=== PATIENT | female | born 1935 | race Caucasian/White ===

== ENCOUNTER 2019-12-16 21:31 | Inpatient (IN) | payer MEDICARE, MEDICAID ==
[~2019-12-16] VITALS: Ht 157.4 cm; Wt 86.3 kg
[2019-12-16] MEDS ORDERED: TRESIBA100 UNIT/1 SQ (23:01)
[2019-12-16] MEDS ORDERED: TRELEGY ELLIPT1 EACH INH (23:04)
[2019-12-16] MEDS ORDERED: DIPROSONE 0.05%15 GM T (23:05)
[2019-12-16] MEDS ORDERED: CLARITIN10 MG PO (23:07)
[2019-12-16] MEDS ORDERED: ENBREL50 MG/1 M2 SQ (23:08)
[2019-12-16] MEDS ORDERED: PRILOSEC20 M1 PO (23:09)
[2019-12-16] MEDS ORDERED: COLACE CLEAR50 MG PO (23:11)
[2019-12-16] MEDS ORDERED: AZELASTINE137 MCG/0. NAS (23:13)
[2019-12-16] MEDS ORDERED: VENTOLIN 02.5 MG/3 M INH (23:14)
[2019-12-16 23:15] VITALS: BP 156/82
--- NOTE | 2019-12-16 23:15 | NUR ---
A 84, admitted VOLUNTARY to , under the services of CINDI Loredo MD with a diagnosis of BRIEF PSYCHOTIC DISORDER. Chief complaint is AUDITORY AND VISUAL HALLUCINATIONS. Patient arrived via stretcher from [facility]. Initial assessment completed. Vital signs taken and recorded. CINDI LOREDO MD notified of admission to the unit. Orders received. See assessment for past medical history, medications and allergies. Patient oriented to unit. [facility]. visitation policy reviewed. Clothing/patient valuable form completed. GUILLERMO PLUMMER
[2019-12-16] MEDS ORDERED: TYLENOL EXTRA500 MG PO (23:17)
[2019-12-17 00:11] VITALS: BP 156/82
[2019-12-17] MEDS ORDERED: SIMVASTATIN80 MG PO (00:27)
[2019-12-17] MEDS ORDERED: LASIX40 MG PO (00:27)
[2019-12-17] MEDS ORDERED: PLAVIX75 M1 PO (00:28)
[2019-12-17] MEDS ORDERED: OMEGA 3 1,0001 EACH PO (00:30)
[2019-12-17] MEDS ORDERED: FEROSUL325 MG PO (00:31)
[2019-12-17] MEDS ORDERED: SINGULAIR10 M1 PO (00:32)
[2019-12-17] MEDS ORDERED: METOPROLOL SUC100 M1 PO (00:33)
[2019-12-17] MEDS ORDERED: DIALYVITE 800800 MCG PO (00:35)
[2019-12-17] MEDS ORDERED: ASPIR 8181 MG PO (00:37)
[2019-12-17] MEDS ORDERED: NITROSTAT0.4 MG SL (00:40)
[2019-12-17] MEDS ORDERED: VITAMIN D250 MCG PO (00:42)
[2019-12-17] MEDS ORDERED: RANEXA1000 M1 PO (00:43)
[2019-12-17] MEDS ORDERED: IMDUR SA60 M1 PO (00:44)
[2019-12-17] MEDS ORDERED: OYSTER SHELL C1 EAC3 PO (00:55)
--- NOTE | 2019-12-17 00:59 | NUR ---
DR CARPENTER NOTIFIED OF MEDICAL CONSULT & MED REQ READY FOR REVIEW. CONSULT TO BE PLACED UNDER DR ROYAL.
--- NOTE | 2019-12-17 01:30 | NUR ---
DR CARPENTER ON UNIT TO SEE PT FOR MEDICAL CONSULT. UPDATED ON MED HISTORY & NEED FOR WOUND ORDERS.
[2019-12-17] MEDS ORDERED: LASIX20 MG PO (03:03)
--- NOTE | 2019-12-17 03:15 | NUR ---
PATIENT ALERT AND ORIENTED X4, CALM AND COOPERATIVE WITH ADMISSION ASSESSMENT WITHOUT DIFFICULTY. PT STATED SHE RECENTLY STARTED HAVING HALLUCINATIONS OF EITHER SHADOWS OR OBJECTS MOVING AROUND HER HOUSE. PT ALSO STATED SHE AT TIMES HEARS VOICES OF UNKNOWN PEOPLE. BECAUSE OF THIS PATIENT CALLED FOR SOMEONE TO COME OVER HER HOUSE TO SEE IF ANYONE ELSE WAS THERE AND THAT IS HOW SHE ENDED UP AT THE HOSPITAL. PT DENIES HALLUCINATIONS AT THIS TIME. PT ALSO DENIES SI/HI OR PAIN. NO PARANOIA OR DELUSIONS OBSERVED. PT NOTED TO HAVE A MOIST NON-PRODUCTIVE COUGH WITH RHONCHI NOTED UPON AUSCULTATION. PT STATED THAT IT IS A SYMPTOM OF HER COPD THAT SHE HAS HAD FOR A WHILE, UPDATED. SKIN ASSESSMENT ALSO COMPLETED WITH WOUND CARE NURSE, MARVIN. SEE WOUND CARE SCREEN. PT USES WALKER TO AMBULATE, GAIT UNSTEADY. FALL PRECAUTIONS INITIATED AND CONTINUED. PT INCONTINENT/CONTINENT OF BOWEL AND BLADDER, X1 ASSIST WITH ADLS. PT CURRENTLY LAYING DOWN WITH EYES CLOSED, RESPIRATIONS EASY AND REGULAR ON 2L NC. NO DISTRESS NOTED. PLAN IS TO CONTINUE TO MONITOR MOOD AND BEHAVIORS. PRESENT REALITY NEEDED. PROVIDE 1:1 WITH THERAPEUTIC INTERVENTIONS. ENCOURAGE MEDICATION COMPLIANCE AND EDUCATE. MAINTAIN Q 15 MIN CHECKS AND PRN FOR SAFETY.
--- NOTE | 2019-12-17 05:15 | NUR ---
UPDATED ON WOUND CARE RECOMMENDATIONS BEING IN FOR REVIEW. NO NEW ORDERS RECEIVED AT THIS TIME.
--- NOTE | 2019-12-17 05:57 | NUR ---
PATIENT SLEPT APPROX 3 HOURS INTERRUPTED SINCE ADMISSION, NO DISTRESS NOTED.
[2019-12-17 06:38] LABS: BASO % 0.4 % (0.0-1.0); EOS # 0.1 10*3/uL (0.0-0.4); EOS % 1.7 % (1.0-4.0); HEMATOCRIT 29.1 % (37.0-47.0); LYMPH # 1.5 10*3/uL (1.3-4.4); LYMPH % 28.8 % (27.0-41.0); MEAN CELL VOLUME 93.9 fl (81.0-99.0); MEAN CORPUSCULAR HGB CONC 30.9 g/dl (33.0-37.0); MEAN PLATELET VOLUME 8.4 fl (9.6-12.3); MONO # 0.8 10*3/uL (0.1-1.0); MONO % 14.6 % (3.0-9.0); NEUT # 2.9 10*3/uL (2.3-7.9); NEUT % 54.1 % (47.0-73.0); PLATELET COUNT AUTOMATED 226 10*3/uL (130-400); RED CELL DISTRI WIDTH 15.5 % (0-14.5); WHITE BLOOD COUNT 5.4 10*3/uL (4.8-10.8)
[2019-12-17 07:19] LABS: THYROID STIM HORMONE (HS) 1.67 uIU/ml (0.358-4.75)
[2019-12-17 07:35] VITALS: BP 177/73
[2019-12-17 07:47] LABS: VITAMIN D, 25-HYDROXY 67.4 ng/mL (30-100)
--- NOTE | 2019-12-17 07:49 | NUR ---
PHYSICAL THERAPY Screen received, pt admitted from [facility] after coming there from home due to auditory and visual hallucinations. Please consult PT if pts functional status declines from baseline. Thank you. Huan Bustos SPT Kelsey Benítez PT
--- NOTE | 2019-12-17 08:03 | NUR ---
Nursing screen received and chart reviewed. 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 If patient has a decline in ADLs, transfers, or functional mobility, please send OT orders. Thank you. Flavia Joseph, OTR/L
--- NOTE | 2019-12-17 08:30 | NUR ---
Treatment Plan meeting was held this a.m. with MICHELLE Felder RN, LOTUS NOTES ADMINISTRATOR-S and Facility Mechanic. Plan for discharge at the end of the week. Pt. came to [facility] from home and at this time Plan is for Pt. to return home.
[2019-12-17 09:42] LABS: ABG BASE EXCESS 4.1 mmol/L (-2.0-2.0); ARTERIAL BLOOD GAS PH 7.412 (7.35-7.45)
--- NOTE | 2019-12-17 10:12 | NUR ---
SPOKE WITH DR THOMPSON RE: PT ABG RESULTS, PER DR THOMPSON SHE WILL TAKE A LOOK. NO FURTHER ORDERS AT THIS TIME.
--- NOTE | 2019-12-17 10:40 | NUR ---
DR SANTIAGO AND TEAM ON UNIT TO ASSESS PT, UPDATE PROVIDED.
--- NOTE | 2019-12-17 11:42 | NUR ---
Group therapy this AM with discussion centering around happiness. Pt fully participated offering her thoughts and voicing encouragement toward another patient. Handout was provided entitled "What Happy People Know." Pt was appropriate in conversation and did not voice any hallucinations during group time.
--- NOTE | 2019-12-17 12:56 | NUR ---
SPOKE WITH DR THOMPSON, ADVISED THAT AFTER SPEAKING WITH PT, SHE TOLD THIS NURSE THAT SHE HAS NOT BEEN WEARING HER O2 AT NIGHT AT HOME AND HAS NOT BEEN SINCE JULY WHEN SHE MOVED APARTMENTS. THIS NURSE PROVIDED EDUCATION FOR PT ON IMPORTANCE OF WEARING HER O2 AT NIGHT AND THE LACK OF O2 MAY ALSO BE CONTRIBUTING TO HER HALLUCIANTIONS. PER DR THOMPSON CHECK PT SPO2 A COUPLE OF TIMES THROUGHOUT THE NIGHTTIME WHEN SHE IS WEARING THE O2 AND SHE WILL CONTINUE TO MONITOR PT. NO FURTHER ORDERS AT THIS TIME.
--- NOTE | 2019-12-17 13:23 | NUR ---
NO ADVERSE MOODS OR BEHAVIORS NOTED. PT ALERT TO PERSON, PLACE AND TIME. PT MED COMPLIANT WITHOUT DIFFICULTY, MED EDUCATION PROVIDED. PT CALM, MOOD IS STABLE. PT PLEASANT, COOPERATIVE AND INTERACTIVE WITH STAFF AND PEERS. PT MOOD IS STABLE. PT DENIES ANY HALLUCINATIONS OR DELUSIONS, NO OVERT S/S NOTED AT THIS TIME. PT DENIES ANY SUICIDAL THOUGHTS. PT AMBULATORY THROUGHOUT UNIT, GAIT STEADY. PT CONTINENT OF BOWEL AND BLADDER, EPISODES OF INCONTINENCE NOTED, CARE PROVIDED NEEDED. PLAN IS TO MONITOR PT BEHAVIORS ON Q15 MIN SAFETY CHECKS, ENOCOURAGE MED COMPLIANCE AND PROVIDE MED EDUCATION, PROVIDE EMOTIONAL SUPPORT AND 1:1 FOR PT TO VOICE FEELINGS.
--- NOTE | 2019-12-17 17:03 | NUR ---
ATTEMPTED TO CALL DR THOMPSON WITH XRAY RESULTS, NO ANSWER AT THIS TIME, WILL ATTEMPT AT A LATER TIME.
--- NOTE | 2019-12-17 18:31 | NUR ---
SPOKE WITH DR THOMPSON AT [phone] RE: PT CXR RESULTS AND PT BEING SOB AT THIS TIME. SPO2 95%RA. PER DR THOMPSON SHE WILL LOOK AT THE RESULTS AND LOOK AT THE ORDERS FOR BREATHING TREATMENT. NO FURTHER ORDERS AT THIS TIME.
[2019-12-17 20:00] VITALS: BP 114/67
--- NOTE | 2019-12-17 22:32 | NUR ---
P-PREOCCUPIED I-PROVIDED REDIRECTION WITH 1:1 THERAPEUTIC COMMUNICATION AND INTERVENTIONS. PRESENTED REALITY NEEDED. ENCOURAGED AND EDUCATED PATIENT ABOUT MEDICATION AND COMPLIANCE R-PATIENT MEDICATION COMPLIANT AT HS. PATIENT PROVIDED SNACK AND FLUIDS AT HS. PATIENT COMPLIANT WITH O2 AT 2L VIA NASAL CANNULA AT HS. PATIENT AMBULATING HALLWAY WITH WHEELED WALKER AND STEADY GAIT. PATIENT COMPLAINT OF FEELING SHAKY AND REQUESTED THIS NURSE TO CHECK HER BLOOD SUGAR. BLOOD SUGAR RESULTS OF 224 AFTER HS SNACK. PATIENT STATING "IT MUST BE ALL IN MY HEAD THEN" AFTER RECEIVING BLOOD SUGAR RESULTS.PATIENT REQUESTING REVIEW OF MEDICATIONS AT HS. THIS NURSE PROVIDED MEDICATION EDUCATION. PATIENT INTERACTING WITH PEERS IN DINING AREA. PATIENT WITH NO HALLUCINATIONS OR DELUSIONS. PATIENT WITH NO SUICIDAL OR HOMICIDAL IDEATIONS. P-CONTINUE TO ENCOURAGE MEDICATION COMPLIANCE, CONTINUE TO PRESENT REALITY, ENCOURAGE GROUP THERAPY WHILE AWAKE
--- NOTE | 2019-12-18 06:00 | NUR ---
PATIENT SLEPT 6 HOURS OF INTERRUPTED SLEEP THROUGHOUT SHIFT. Q 15 MINUTE CHECKS MAINTAINED. 24 HR chart check completed.
[2019-12-18 06:57] LABS: ALBUMIN 2.3 gm/dl (3.1-4.5); CREATININE 1.52 mg/dL (0.55-1.02); POTASSIUM 4.1 mmol/L (3.5-5.1); TOTAL PROTEIN 6.8 gm/dL (6.4-8.2)
[2019-12-18 07:51] VITALS: BP 140/40
--- NOTE | 2019-12-18 09:00 | NUR ---
Treatment Plan meeting was held this a.m. with MICHELLE Felder RN, POLEYARD SUPERVISOR-S and Racecourse Barrier Attendant. Plan for discharge Monday. Pt. will return home at discharge.
--- NOTE | 2019-12-18 11:13 | NUR ---
Spoke with pt's Passport caser in Karen Crandall ([phone]) and provided her with pt update. Karen is requesting a call when discharge date is determined for pt so that she can resume pt's home services.
--- NOTE | 2019-12-18 11:26 | NUR ---
PAMELA POWERS ON UNIT TO ASSESS PATIENT.
--- NOTE | 2019-12-18 12:00 | NUR ---
Shift chart check completed.
--- NOTE | 2019-12-18 12:07 | NUR ---
Nutritional Support Services Note: Appetite is fair to good for meals. Dx of DM, brief psychotic disorder. Wounds noted Stage 3. She currently receives an 1800cal diet. Recommend glucerna OS po TID with meals. Will continue to provide pt with a night snack. Staff to encourage intake and honor food prefences. Will follow if needed. Xenia Powers Rdn Ld
--- NOTE | 2019-12-18 12:55 | NUR ---
No adverse moods or behaviors noted this shift. Alert and oriented x4, mood stable, affect is congruent with mood. Denies SI/HI, intent or plan, hallucinations, delusions or pain. No s/s of interacting with internal stimuli. No s/s of paranoid or delusional thought process noted. No s/s of distress noted with resps even and unlabored on room air. Voices needs and makes known. Medication compliant with education provided on each med. Interactive and participating. Eating and drinking appropriately. Ambulates with a steady gait utilizing a walker. Compliant with falling star program and wound care orders. Fallin star program in place due to unsteady gait at times. Wound care orders maintained and encouraged patient compliance with education. Q15 minute checks maintained for safety.
--- NOTE | 2019-12-18 13:31 | NUR ---
Group therapy this afternoon with the topic of thankfulness. Pt participated and offered her thoughts. Pt was supportive of another pt in group. Hand-out provided "Thank you: The Power of Appreciation." Pt was also provided with a gratitude journal and educated in the benefits of daily use. This freelance writer did not observe pt voicing any hallucinations or delusions.
--- NOTE | 2019-12-18 18:00 | NUR ---
Shift chart check completed.
--- NOTE | 2019-12-18 18:01 | NUR ---
PATIENT IS ALERT TO PERSON, PLACE, TIME AND SITUATION; ABLE TO VOICE NEEDS. MOOD IS STABLE. DENIES HALLUCINATIONS, DELUSIONS, HI/SI OR PAIN. MEDICATION COMPLAINT WITH EDUCATIONS. Q 15 MINUTE SAFETY CHECKS. ONE PERSON ASSIST WITH ACTIVITIES OF DAILY LIVING, CONTINENT OF BOWEL AND BLADDER. SET UP FOR MEALS, INTAKES ARE GOOD WITH ADEQUATE FLUIDS. AMBULATES WITH STEADY GAIT USING A WALKER. INTERACTIVE WITH NURSES AND OTHER PATIENTS. CONTINUE TO MONITOR FOR HALLUCINATIONS; PROVIDE ONE ON ONE AND REDIRECTION NEEDED.
[2019-12-18 20:00] VITALS: BP 111/75
--- NOTE | 2019-12-18 22:14 | NUR ---
P-PREOCCUPIED I-PROVIDED REDIRECTION WITH 1:1 THERAPEUTIC COMMUNICATION AND INTERVENTIONS. PRESENTED REALITY NEEDED. ENCOURAGED AND EDUCATED PATIENT ABOUT MEDICATION AND COMPLIANCE R-PATIENT MEDICATION COMPLIANT AT HS. PATIENT PROVIDED SNACK AND FLUIDS AT HS. PATIENT COMPLIANT WITH O2 AT 2L VIA NASAL CANNULA AT HS. PATIENT AMBULATING IN HALLWAY WITH WHEELED WALKER AND STEADY GAIT. PATIENT REQUESTING REVIEW OF MEDICATIONS AT HS. THIS NURSE PROVIDED MEDICATION EDUCATION. PATIENT ALSO WANTING CLARIFICATION OF GLUCERNA AT HS AND TIMES OF DAY WHEN GLUCERNA IS TO BE RECEIVED. PATIENT INTERACTING WITH PEERS IN DINING AREA. PATIENT WITH NO HALLUCINATIONS OR DELUSIONS. PATIENT WITH NO SUICIDAL OR HOMICIDAL IDEATIONS. P-CONTINUE TO ENCOURAGE MEDICATION COMPLIANCE, CONTINUE TO PRESENT REALITY, ENCOURAGE GROUP THERAPY WHILE AWAKE
--- NOTE | 2019-12-19 04:17 | NUR ---
This nurse notified Tiki Joy RN that patient will need wound care upon discharge.
--- NOTE | 2019-12-19 05:57 | NUR ---
PATIENT SLEPT 6-7 HOURS UNINTERRUPTED SLEEP THROUGHOUT SHIFT. Q 15 MINUTE CHECKS MAINTAINED. 24 HR chart check completed.
[2019-12-19 07:52] VITALS: BP 125/56
--- NOTE | 2019-12-19 07:55 | NUR ---
Patient eating breakfast in dining room with peers. Respirations easy and regular. Vital signs stable. No overt distress. KARINA BELTRAN
--- NOTE | 2019-12-19 08:00 | NUR ---
on unit to see pt at this time, update given.
--- NOTE | 2019-12-19 08:52 | NUR ---
Treatment Plan meeting was held this a.m. with Dr. Cabrera RN, SECOND MATE-S and Wire Basket Maker. Discussed Treatment Plan and Discharge Plans with Pt. returning Home. Plan for discharge Home Tommorow.
--- NOTE | 2019-12-19 11:53 | NUR ---
Group discussion today with the topic of simple pleasures in life. Pt participated fully. Pt provided many examples of the simple pleasures that she enjoys in life. Pt was supportive and interactive with her peer. No hallucinations or delusions were voiced by pt while in group.
--- NOTE | 2019-12-19 12:15 | NUR ---
DR. MORENO ON UNIT TO ASSESS PATIENT.
--- NOTE | 2019-12-19 12:30 | NUR ---
DR. MADDEN ON UNIT TO ASSESS PATIENT.
--- NOTE | 2019-12-19 12:38 | NUR ---
Notified pt's Passport case management director Karen Crandall that pt is to discharge tomorrow.
--- NOTE | 2019-12-19 13:57 | NUR ---
PATIENT IS ALERT TO PERSON, PLACE, TIME AND SITUATION; ABLE TO VOICE NEEDS. MOOD IS STABLE. DENIES HALLUCINATIONS, DELUSIONS, HI/SI OR PAIN. MEDICATION COMPLAINT WITH EDUCATIONS. Q 15 MINUTE SAFETY CHECKS. ONE PERSON ASSIST WITH ACTIVITIES OF DAILY LIVING, CONTINENT OF BOWEL AND BLADDER. SET UP FOR MEALS, INTAKES ARE GOOD WITH ADEQUATE FLUIDS. AMBULATES WITH STEADY GAIT USING A WALKER. INTERACTIVE WITH NURSES AND OTHER PATIENTS; PARTICIPATES IN GROUP SESSION. CONTINUE TO MONITOR FOR HALLUCINATIONS; PROVIDE ONE ON ONE FOR EMOTIONAL SUPPORT NEEDED.
--- NOTE | 2019-12-19 14:19 | NUR ---
Afternoon activity group of [place]. Pt participated and socialized with her peers and staff. No hallucinations or delusions spoken by pt.
--- NOTE | 2019-12-19 15:38 | NUR ---
Shift chart check completed.
[2019-12-19 20:00] VITALS: BP 142/59
--- NOTE | 2019-12-19 22:39 | NUR ---
P-PREOCCUPIED I-PROVIDED REDIRECTION WITH 1:1 THERAPEUTIC COMMUNICATION AND INTERVENTIONS. PRESENTED REALITY NEEDED. ENCOURAGED AND EDUCATED PATIENT ABOUT MEDICATION AND COMPLIANCE R-PATIENT MEDICATION COMPLIANT AT HS. PATIENT PROVIDED SNACK AND FLUIDS AT HS. PATIENT COMPLIANT WITH O2 AT 2L VIA NASAL CANNULA AT HS. PATIENT AMBULATING IN HALLWAY WITH WHEELED WALKER AND STEADY GAIT. PATIENT PREOCCUPIED WITH ABDOMINAL FOLD AND AREAS ON BILATERAL POSTERIOR THIGHS. THIS NURSE EDUCATED PATIENT ABOUT TURNING AND REPOSITIONING. ABDOMINAL CLEANED AND NYSTOP POWDER APPLIED AND PATIENT EDUCATED ABOUT HANDWASHING AND KEEPING ABDOMINAL FOLDS CLEAN AND DRY. PATIENT REASSURED THAT SEAT CUSHION BEING USED IS HELPFUL FOR HER. PATIENT WITH NO HALLUCINATIONS OR DELUSIONS. PATIENT WITH NO SUICIDAL OR HOMICIDAL IDEATIONS. P-CONTINUE TO ENCOURAGE MEDICATION COMPLIANCE, CONTINUE TO PRESENT REALITY, ENCOURAGE GROUP THERAPY WHILE AWAKE
--- NOTE | 2019-12-20 05:48 | NUR ---
PATIENT SLEPT 4-5 HOURS OF INTERRRUPTED SLEEP THROUGHOUT SHIFT. Q 15 MINUTE CHECKS MAINTAINED. 24 HR chart check completed.
[2019-12-20 07:56] VITALS: BP 124/57
--- NOTE | 2019-12-20 09:00 | NUR ---
Treatment Plan meeting was held this a.m. with MICHELLE Felder RN, SMALL ENGINE TRAINER-S and Security Director. Plan for discharge today. Pt. will return home. [facility] to follow for Wound Care. Pt. refused Psychiatric Follow up and stated her family physician will order her Medications. Follow up Scheduled with Dr. Rajesh Marquez 01/01/2020 11:30 a.m. Notified [facility] of Discharge.
[2019-12-20] MEDS ORDERED: RISPERIDONE0.25 M2 PO (09:03)
--- NOTE | 2019-12-20 12:28 | NUR ---
MICHAEL BECKETT CNP ON UNIT TO ASSESS PATIENT.
--- NOTE | 2019-12-20 13:46 | NUR ---
PATIENT IS ALERT TO PERSON, PLACE, TIME AND SITUATION; ABLE TO VOICE NEEDS. MOOD IS STABLE. DENIES HALLUCINATIONS, DELUSIONS, HI/SI OR PAIN. MEDICATION COMPLAINT WITH EDUCATIONS. Q 15 MINUTE SAFETY CHECKS. ONE PERSON ASSIST WITH ACTIVITIES OF DAILY LIVING, CONTINENT OF BOWEL AND BLADDER. SET UP FOR MEALS, INTAKES ARE GOOD WITH ADEQUATE FLUIDS. AMBULATES WITH STEADY GAIT USING A WALKER. INTERACTIVE WITH NURSES AND OTHER PATIENTS. CONTINUE TO MONITOR FOR HALLUCINATIONS; PROVIDE ONE ON ONE FOR EMOTIONAL SUPPORT NEEDED. EDUCATION PROVIDED ON THE IMPORTANCE OF KEEPING O2 ON AT HS AND OFF LOADING PRESSURE TO BUTTOCKS. ONE ON ONE EFFECTIVE.
--- NOTE | 2019-12-20 14:12 | NUR ---
Family meeting held via phone with pt's niece Meg Lares. Discussed pt's current status and discharge needs. Confirmed that pt will resume services through [employer] and new skilled services for wound care with [facility].
--- NOTE | 2019-12-20 14:22 | NUR ---
Patient is discharging home to her senior apartment today. Follow-up was scheduled with Dr Marquez on 01/01/20. Pt will resume services through [employer] and with [facility] for wound care. While at [facility], pt's hallucinations resolved. Pt was pleasant and cooperative with staff and peers. Pt participated in programming,.
--- NOTE | 2019-12-20 14:53 | NUR ---
PATIENT'S FAMILY MEMBER AT THE ENTRENCE, PATIENT ASSISTED INTO WHEELCHAIR. ALL BELONGINGS AND DISCHARGE INSTRUCTIONS SENT WITH PATIENT OFF UNIT WITH NURSING STAFF TO PRIVATE VEHICLE.
== END 2019-12-20 14:53 | disposition home or self-care (01) | DRG 885 ==
LOC: 3N 21:31
PROVIDERS: Counselor Professional; ADMIT Psychiatry & Neurology Psychiatry
DX: F23 Brief psychotic disorder (principal); J96.11 Chronic respiratory failure with hypoxia; I13.0 Hypertensive heart and chronic kidney disease with heart failure and stage 1 through stage 4 chronic kidney disease, or unspecified chronic kidney disease; N18.3 Chronic kidney disease, stage 3 (moderate); L40.9 Psoriasis, unspecified; I25.10 Atherosclerotic heart disease of native coronary artery without angina pectoris; I50.9 Heart failure, unspecified; E11.22 Type 2 diabetes mellitus with diabetic chronic kidney disease; E78.5 Hyperlipidemia, unspecified; Z20.828 Contact with and (suspected) exposure to other viral communicable diseases; J44.9 Chronic obstructive pulmonary disease, unspecified; I87.2 Venous insufficiency (chronic) (peripheral); L85.3 Xerosis cutis; L89.892 Pressure ulcer of other site, stage 2; Z95.5 Presence of coronary angioplasty implant and graft; Z79.4 Long term (current) use of insulin; Z82.49 Family history of ischemic heart disease and other diseases of the circulatory system; Z83.3 Family history of diabetes mellitus; Z80.9 Family history of malignant neoplasm, unspecified; Z88.1 Allergy status to other antibiotic agents; Z88.5 Allergy status to narcotic agent; Z88.8 Allergy status to other drugs, medicaments and biological substances; Z79.899 Other long term (current) drug therapy